=== PATIENT | male | born 1980 | race African-American/Black ===

== ENCOUNTER 2019-02-24 20:05 | Inpatient (IN) ==
[2019-02-24] MEDS ORDERED: ENOXAPARIN 100 MG/ML SYRINGE SUBCUT STA (20:36)
[2019-02-24] MEDS ORDERED: DILTIAZEM 50 MG/10 ML VIAL IV STA (20:36)
[2019-02-24] MEDS ORDERED: dilTIAZem Drip 125 MG/125 ML PREMIX IV SCH (21:00)
[2019-02-24 21:21] LABS: Basophils % 0.3 % (0.0-0.8); Eosinophils % 0.2 % (0.00-10.9); Hematocrit 48.4 VOL% (42.0-52.0); Hemoglobin 15.9 GM/DL (14.0-18.0); Immature Granulocytes % 0.5 %; Immature Granulocytes Absolute 0.06 #; Lymphocytes % 16.4 % (21.2-54.2); Mean Corpuscular HGB Conc 32.9 GM/DL (32-36); Mean Corpuscular Hemoglobin 29 PG (27-34); Mean Corpuscular Volume 89.5 FL (87-102); Mean Platelet Volume 10.8 FL (9.6-12.0); Monocytes # 0.7 10*3/uL (0.11-0.8); Monocytes % 5.8 % (1.7-12.7); Neutrophils # 9.2 10*3/uL (1.4-7.4); Neutrophils % 76.8 % (38.7-73.9); Platelet Count 243 T/CUMM (130-400); Red Blood Count 5.41 MC/CUMM (3.8-5.5)
[2019-02-24 21:49] LABS: Albumin 4.3 G/DL (3.4-5.0); Bilirubin,Total 0.6 MG/DL (0.2-1.0); Calcium 9.6 MG/DL (8.5-10.1); Osmolality,Calculated 272.8 MOS/KG (273-304); Potassium 3.6 MMOL/L (3.5-5.1); Thyroid Stimulating Hormone 2.67 uIU/ml (0.358-3.74); Total Protein 8.5 G/DL (6.4-8.3)
[2019-02-24] MEDS ORDERED: LORazepam 2 MG/1 ML VIAL IV STA (22:47)
[2019-02-24] MEDS ORDERED: LORazepam 2 MG/1 ML VIAL ONE (22:49)
[2019-02-24] MEDS ORDERED: ONDANSETRON 4 MG/2 ML VIAL IV PRN (23:57)
[2019-02-24] MEDS ORDERED: ACETAMINOPHEN 325 MG TABLET PO PRN (23:57)
[2019-02-25 01:34] LABS: Apearance,Urine CLEAR (Clear); Bilirubin,Urine Negative (Negative); Blood, Urine Negative (Negative); Glucose,Urine (UA) Negative (Negative); Ketones,Urine 5 mg/dL (Negative); Mucus,Urine Few /LPF (Occasional); Nitrite,Urine Negative (Negative); Protein,Urine Negative; RBC,Urine <1 /HPF (0-4); Urine Color Yellow (Yellow); Urine Urobilinogen < 2.0 EU/DL (0.2-1.0); WBC,Urine 1 /HPF (0-6)
[2019-02-25 05:20] LABS: Barbiturates Screen,Urine Negative (Negative); Benzodiazepines Screen,Urine Negative (Negative); Cannabinoid Screen,Urine Negative (Negative); Opiate Screen,Urine Negative (Negative); Phencyclidine Screen,Urine Negative (Negative)
[2019-02-25 07:03] LABS: Calcium 9.1 MG/DL (8.5-10.1); Osmolality,Calculated 275.7 MOS/KG (273-304); Potassium 3.7 MMOL/L (3.5-5.1)
[2019-02-25] MEDS ORDERED: LORazepam 1 MG TABLET PO PRN (08:10)
[2019-02-25] MEDS ORDERED: FLECAINIDE 50 MG TABLET PO SCH (09:00)
[2019-02-25] MEDS ORDERED: ASPIRIN EC 81 MG TABLET PO SCH (09:00)
[2019-02-25] MEDS ORDERED: ENOXAPARIN 40 MG/0.4 ML SYRINGE SUBCUT SCH ×2 (09:00→21:00)
[2019-02-25] MEDS ORDERED: PANTOPRAZOLE 40 MG TABLET PO SCH (09:00)
[2019-02-25] MEDS ORDERED: DILTIAZEM CD 180 MG CAPSULE PO SCH (09:00)
[2019-02-25] MEDS ORDERED: APIXABAN 5 MG TABLET PO SCH (09:00)
[2019-02-25] MEDS ORDERED: POTASSIUM CHLORIDE 10 MEQ TABLET PO ONE (10:55)
[2019-02-25] MEDS ORDERED: ALPRAZolam 0.25 MG TABLET PO PRN (11:49)
[2019-02-25 12:39] VITALS: BP 123/75
== END 2019-02-25 13:38 | disposition home or self-care (01) | DRG 310 ==
LOC: N.ED 20:05 → N.EDINP 23:57 → N.TELES 02-25 01:31
PROVIDERS: ADMIT Hospitalist; ATTEND Hospitalist